=== PATIENT | female | born 1980 | race Caucasian/White ===

== ENCOUNTER → 2016-07-05 | Outpatient (CLI) | payer OTHER ==
[~2016-07-05] MED LIST: LISINOPRIL20 MG PO; LISINOPRIL5 MG PO; NEURONTIN 300300 MG PO; NORCO 10-325 T1 EACH PO; NORCO 5-325 TA1 EACH PO; ZANTAC150 MG PO; ZANTAC300 MG PO; humalog
[2016-07-05 14:01] LABS: HEMOGLOBIN 14.2 gm/dl (12.3-15.3); RED BLOOD COUNT 4.59 M/UL (4.00-5.10); WHITE BLOOD COUNT 6.4 K/UL (4.5-11.0)
[2016-07-05 14:20] LABS: BUN/CREATININE RATIO 13 (0-10)
== END ==
LOC: LAB 13:11
PROVIDERS: Physician Assistant
DX: Z02.89 Encounter for other administrative examinations (principal); I10 Essential (primary) hypertension; E78.5 Hyperlipidemia, unspecified; R19.7 Diarrhea, unspecified
CPT/HCPCS: 36415; 80053; 80061; 82043; 82570; 83036; 84439; 84443; 85025

== ENCOUNTER → 2016-08-12 | Outpatient (CLI) | payer OTHER ==
[2016-08-12 16:02] LABS: BUN/CREATININE RATIO 17 (0-10)
== END ==
LOC: LAB 15:05
PROVIDERS: Internal Medicine Nephrology
DX: R80.9 Proteinuria, unspecified (principal)
CPT/HCPCS: 36415; 80048; 81001; 82570; 84156

== ENCOUNTER → 2016-08-26 | Outpatient (CLI) | payer OTHER | LOC: LAB 15:25 | DX: N39.0 Urinary tract infection, site not specified (principal) | CPT/HCPCS: 36415; 87077; 87086; 87186 ==

== ENCOUNTER → 2020-03-26 | Outpatient (CLI) | payer OTHER ==
[~2020-03-26] MED LIST changes: +ADMELOG100 UNIT/1 SC; +AMITRIPTYLINE100 MG PO; +COMPAZINE10 MG PO; +CYMBALTA60 MG PO; +HYDROCODON-ACE1 EAC2 PO; +MACROBID 100 M100 M1 PO; +VITAMIN D21250 MCG PO; +ZESTRIL40 MG PO; +ZOFRAN ODT 4 MG4 MG SL
== END ==
LOC: LAB 11:15
DX: D89.89 Other specified disorders involving the immune mechanism, not elsewhere classified (principal); M25.50 Pain in unspecified joint; R76.8 Other specified abnormal immunological findings in serum; R76.0 Raised antibody titer; M79.10 Myalgia, unspecified site
CPT/HCPCS: 36415; 82550; 83520

== ENCOUNTER → 2020-05-27 | Outpatient (CLI) | payer OTHER ==
[2020-05-27 10:49] LABS: HEMOGLOBIN 13.7 gm/dl (12.3-15.3); RED BLOOD COUNT 4.38 M/UL (4.00-5.10); WHITE BLOOD COUNT 9.5 K/UL (4.5-11.0)
== END ==
LOC: OPSV2 10:00
PROVIDERS: Orthopaedic Surgery
DX: Z01.818 Encounter for other preprocedural examination (principal); M65.341 Trigger finger, right ring finger
CPT/HCPCS: 36415; 80048; 85025; 93005

== ENCOUNTER → 2020-05-29 | Day surgery (SDC) | payer OTHER | END | disposition home or self-care (01) | LOC: OR 06:30 | PROVIDERS: Orthopaedic Surgery | PROC: 0LN70ZZ Release Right Hand Tendon, Open Approach (ICD-10-PCS; principal; 2020-05-29 08:15) | DX: M65.341 Trigger finger, right ring finger (principal); M72.0 Palmar fascial fibromatosis [Dupuytren]; E10.43 Type 1 diabetes mellitus with diabetic autonomic (poly)neuropathy; K31.84 Gastroparesis; E10.40 Type 1 diabetes mellitus with diabetic neuropathy, unspecified; F41.9 Anxiety disorder, unspecified; F32.9 Major depressive disorder, single episode, unspecified; Z79.4 Long term (current) use of insulin; Z96.41 Presence of insulin pump (external) (internal); Z79.899 Other long term (current) drug therapy; Z20.822 Contact with and (suspected) exposure to COVID-19; Z96.82 Presence of neurostimulator | CPT/HCPCS: 82962; J2001; J2250; J2704; J3010; J7030; J7120 ==

== ENCOUNTER → 2020-06-04 | Outpatient (CLI) | payer OTHER | LOC: RAD 10:13 | DX: M54.5 Low back pain (principal); M47.816 Spondylosis without myelopathy or radiculopathy, lumbar region; M43.8X6 Other specified deforming dorsopathies, lumbar region | CPT/HCPCS: 72100 ==

== ENCOUNTER → 2020-07-03 | Outpatient (CLI) | payer OTHER | LOC: EXRD 15:00 | DX: R80.9 Proteinuria, unspecified (principal); N28.89 Other specified disorders of kidney and ureter | CPT/HCPCS: 76775 ==